=== PATIENT | female | born 1970 | race Caucasian/White ===

== ENCOUNTER 2019-09-01 01:32 | Emergency (ER) | payer OTHER ==
[~2019-09-01] VITALS: Ht 165.1 cm; Wt 79.4 kg
[2019-09-01] MEDS ORDERED: TIOT18 (02:12)
[2019-09-01] MEDS ORDERED: VOSPIRE (02:13)
[2019-09-01 02:24] LABS: BASOPHILS ABSOLUTE AUTO 0.03 K/mm3 (0.00-0.23); BASOPHILS PERCENT AUTO 1 % (0-2); EOSINOPHILS ABSOLUTE AUTO 0.18 K/mm3 (0.00-0.68); EOSINOPHILS PERCENT AUTO 3 % (0-6); Hematocrit 36.4 % (33.0-51.0); Hemoglobin 12.7 g/dL (11.5-16.0); IMMATURE GRAN ABSOLUTE AUTO 0.01 K/mm3 (0.00-0.10); IMMATURE GRAN PERCENT AUTO 0 % (0-1); LYMPHOCYTES ABSOLUTE AUTO 1.92 K/mm3 (0.84-5.20); LYMPHOCYTES PERCENT AUTO 31 % (21-46); MONOCYTES ABSOLUTE AUTO 0.49 K/mm3 (0.16-1.47); MONOCYTES PERCENT AUTO 8 % (4-13); Mean Corpuscular HGB 32.5 pg (26.0-34.0); Mean Corpuscular HGB Conc 34.9 g/dL (31.5-36.5); Mean Corpuscular Volume 93 fL (80-100); Mean Platelet Volume 10.8 fL (9.1-12.4); NEUTROPHILS ABSOLUTE AUTO 3.66 K/mm3 (1.96-9.15); NEUTROPHILS PERCENT AUTO 58 % (41-73); Platelet Count 219 K/mm3 (150-400); RDW Coefficient Variation 12.2 % (11.7-14.2); RDW Standard Deviation 41.5 fL (35.1-46.3); Red Blood Cell Count 3.91 M/mm3 (3.80-5.20); White Blood Cell Count 6.29 K/mm3 (4.00-11.30)
[2019-09-01 02:45] LABS: Alanine Aminotransfer (ALT/SGP 19 U/L (12-78); Albumin, Blood 3.2 g/dL (3.4-5.0); Albumin/Globulin Ratio 1.2 (0.8-1.8); Alk Phos 58 U/L (50-136); Anion Gap 7 mmol/L (6-16); Aspartate Aminotrans (AST/SGOT 19 U/L (12-37); Bilirubin, Total 0.4 mg/dL (0.1-1.0); Blood Urea Nitrogen 10 mg/dL (8-24); Bun/Creatinine Ratio 12.5 (12.0-20.0); CO2, Blood 26 mmol/L (21-32); Calcium, Blood 8.1 mg/dL (8.5-10.1); Chloride, Blood 92 mmol/L (98-108); Globulin, Blood 2.7 g/dL (2.2-4.0); Glomerular Filtration Rate >60 (60-); Glucose, Blood 85 mg/dL (70-99); Potassium, Blood 3.7 mmol/L (3.5-5.5); Sodium, Blood 125 mmol/L (136-145); Total Protein, Blood 5.9 g/dL (6.4-8.2); Troponin I <0.015 ng/mL (0.000-0.040)
== END 2019-09-01 05:12 | disposition home or self-care (01) ==
LOC: ER 01:32
PROVIDERS: Emergency Medicine
DX: F41.9 Anxiety disorder, unspecified (principal); R07.9 Chest pain, unspecified; E87.1 Hypo-osmolality and hyponatremia; J44.9 Chronic obstructive pulmonary disease, unspecified; F17.200 Nicotine dependence, unspecified, uncomplicated; Z79.899 Other long term (current) drug therapy
CPT/HCPCS: 71046; 80053; 84484; 85025; 93005; 93010; 96374; 99285-25; J1885

== ENCOUNTER 2019-09-06 13:52 | Emergency (ER) | payer OTHER ==
[~2019-09-06] VITALS: Ht 162.6 cm; Wt 77.1 kg
[~2019-09-06 13:52] MED LIST: TIOT18; VOSPIRE
[2019-09-06 15:00] LABS: BASOPHILS ABSOLUTE AUTO 0.03 K/mm3 (0.00-0.23); BASOPHILS PERCENT AUTO 0 % (0-2); EOSINOPHILS ABSOLUTE AUTO 0.08 K/mm3 (0.00-0.68); EOSINOPHILS PERCENT AUTO 1 % (0-6); Hematocrit 38.7 % (33.0-51.0); Hemoglobin 13.5 g/dL (11.5-16.0); IMMATURE GRAN ABSOLUTE AUTO 0.02 K/mm3 (0.00-0.10); IMMATURE GRAN PERCENT AUTO 0 % (0-1); LYMPHOCYTES ABSOLUTE AUTO 2.29 K/mm3 (0.84-5.20); LYMPHOCYTES PERCENT AUTO 29 % (21-46); MONOCYTES ABSOLUTE AUTO 0.73 K/mm3 (0.16-1.47); MONOCYTES PERCENT AUTO 9 % (4-13); Mean Corpuscular HGB 32.1 pg (26.0-34.0); Mean Corpuscular HGB Conc 34.9 g/dL (31.5-36.5); Mean Corpuscular Volume 92 fL (80-100); Mean Platelet Volume 11.7 fL (9.1-12.4); NEUTROPHILS ABSOLUTE AUTO 4.69 K/mm3 (1.96-9.15); NEUTROPHILS PERCENT AUTO 60 % (41-73); Platelet Count 236 K/mm3 (150-400); RDW Coefficient Variation 12.1 % (11.7-14.2); RDW Standard Deviation 40.7 fL (35.1-46.3); Red Blood Cell Count 4.21 M/mm3 (3.80-5.20); White Blood Cell Count 7.84 K/mm3 (4.00-11.30)
[2019-09-06 15:29] LABS: Alanine Aminotransfer (ALT/SGP 33 U/L (12-78); Albumin/Globulin Ratio 1.3 (0.8-1.8); Alk Phos 64 U/L (50-136); Anion Gap 8 mmol/L (6-16); Aspartate Aminotrans (AST/SGOT 31 U/L (12-37); Bilirubin, Total 0.4 mg/dL (0.1-1.0); Blood Urea Nitrogen 7 mg/dL (8-24); Bun/Creatinine Ratio 8.9 (12.0-20.0); CO2, Blood 22 mmol/L (21-32); Calcium, Blood 9.2 mg/dL (8.5-10.1); Chloride, Blood 103 mmol/L (98-108); Creatinine, Blood 0.78 mg/dL (0.40-1.00); Glomerular Filtration Rate >60 (60-); Glucose, Blood 85 mg/dL (70-99); Potassium, Blood 3.7 mmol/L (3.5-5.5); Sodium, Blood 133 mmol/L (136-145); Troponin I <0.015 ng/mL (0.000-0.040)
== END 2019-09-06 16:06 | disposition home or self-care (01) ==
LOC: ER 13:52
PROVIDERS: Emergency Medicine
DX: R07.89 Other chest pain (principal); F10.239 Alcohol dependence with withdrawal, unspecified; Z79.899 Other long term (current) drug therapy; J44.9 Chronic obstructive pulmonary disease, unspecified; F43.10 Post-traumatic stress disorder, unspecified; Z87.891 Personal history of nicotine dependence
CPT/HCPCS: 36415; 71045; 80053; 84484; 85025; 93005; 93010; 99284-25

== ENCOUNTER 2019-09-07 17:44 | Emergency (ER) | payer OTHER ==
[~2019-09-07] VITALS: Ht 162.6 cm; Wt 77.1 kg
[2019-09-07 18:21] LABS: BASOPHILS ABSOLUTE AUTO 0.04 K/mm3 (0.00-0.23); BASOPHILS PERCENT AUTO 1 % (0-2); EOSINOPHILS ABSOLUTE AUTO 0.16 K/mm3 (0.00-0.68); EOSINOPHILS PERCENT AUTO 3 % (0-6); Hematocrit 36.9 % (33.0-51.0); IMMATURE GRAN ABSOLUTE AUTO 0.01 K/mm3 (0.00-0.10); IMMATURE GRAN PERCENT AUTO 0 % (0-1); LYMPHOCYTES ABSOLUTE AUTO 2.38 K/mm3 (0.84-5.20); LYMPHOCYTES PERCENT AUTO 41 % (21-46); MONOCYTES PERCENT AUTO 10 % (4-13); Mean Corpuscular HGB 32.7 pg (26.0-34.0); Mean Corpuscular HGB Conc 35.2 g/dL (31.5-36.5); Mean Corpuscular Volume 93 fL (80-100); Mean Platelet Volume 11.2 fL (9.1-12.4); NEUTROPHILS PERCENT AUTO 45 % (41-73); Platelet Count 213 K/mm3 (150-400); RDW Coefficient Variation 11.8 % (11.7-14.2); RDW Standard Deviation 41.3 fL (35.1-46.3); Red Blood Cell Count 3.97 M/mm3 (3.80-5.20); White Blood Cell Count 5.79 K/mm3 (4.00-11.30)
[2019-09-07 18:44] LABS: Troponin I <0.015 ng/mL (0.000-0.040)
[2019-09-07 18:52] LABS: Alanine Aminotransfer (ALT/SGP 31 U/L (12-78); Albumin, Blood 3.8 g/dL (3.4-5.0); Albumin/Globulin Ratio 1.5 (0.8-1.8); Alk Phos 59 U/L (50-136); Anion Gap 8 mmol/L (6-16); Aspartate Aminotrans (AST/SGOT 19 U/L (12-37); Bilirubin, Total 0.5 mg/dL (0.1-1.0); Blood Urea Nitrogen 7 mg/dL (8-24); Bun/Creatinine Ratio 8.8 (12.0-20.0); CO2, Blood 20 mmol/L (21-32); Calcium, Blood 8.7 mg/dL (8.5-10.1); Chloride, Blood 97 mmol/L (98-108); Creatinine, Blood 0.79 mg/dL (0.40-1.00); Globulin, Blood 2.6 g/dL (2.2-4.0); Glomerular Filtration Rate >60 (60-); Glucose, Blood 85 mg/dL (70-99); Potassium, Blood 3.6 mmol/L (3.5-5.5); Sodium, Blood 125 mmol/L (136-145); Total Protein, Blood 6.4 g/dL (6.4-8.2)
== END 2019-09-07 21:07 | disposition home or self-care (01) ==
LOC: ER 17:44
PROVIDERS: Physician Assistant
DX: F41.9 Anxiety disorder, unspecified (principal); R07.89 Other chest pain; F10.239 Alcohol dependence with withdrawal, unspecified; F11.23 Opioid dependence with withdrawal; J44.9 Chronic obstructive pulmonary disease, unspecified; E87.1 Hypo-osmolality and hyponatremia; Z87.891 Personal history of nicotine dependence; Z79.899 Other long term (current) drug therapy
CPT/HCPCS: 71046; 80053; 84484; 85025; 93005; 93010; 99285-25

== ENCOUNTER 2020-02-23 13:18 | Emergency (ER) | payer OTHER ==
[~2020-02-23] VITALS: Ht 162.6 cm; Wt 69.4 kg
[~2020-02-23 13:18] MED LIST changes: +ACET325 PO; +ALBU90OI INH; +BREO ELLIPTA 11 EACH INH; +CLON.1 PO; +IBU800 M1 PO; +Nicoderm Cq1 EAC1 TOP; +Prempro 0.3 MG/1 TAB PO; +SPIRIVA RESPIMAT4 GM INH; +THERA1 EACH PO
== END 2020-02-23 14:12 | disposition home or self-care (01) ==
LOC: ER 13:18
DX: R07.89 Other chest pain (principal); I10 Essential (primary) hypertension; J44.9 Chronic obstructive pulmonary disease, unspecified; F43.10 Post-traumatic stress disorder, unspecified; Z79.899 Other long term (current) drug therapy; Z87.891 Personal history of nicotine dependence
CPT/HCPCS: 36415; 93005; 93010; 99283-25

== ENCOUNTER 2020-11-08 05:59 | Inpatient (IN) | payer OTHER ==
[~2020-11-08] VITALS: Ht 165.1 cm; Wt 81.7 kg
[2020-11-08 06:29] LABS: BASOPHILS ABSOLUTE AUTO 0.04 K/mm3 (0.00-0.23); BASOPHILS PERCENT AUTO 0 % (0-2); EOSINOPHILS ABSOLUTE AUTO 0.65 K/mm3 (0.00-0.68); EOSINOPHILS PERCENT AUTO 5 % (0-6); Hematocrit 20.1 % (33.0-51.0); IMMATURE GRAN ABSOLUTE AUTO 0.16 K/mm3 (0.00-0.10); IMMATURE GRAN PERCENT AUTO 1 % (0-1); LYMPHOCYTES ABSOLUTE AUTO 1.42 K/mm3 (0.84-5.20); LYMPHOCYTES PERCENT AUTO 10 % (21-46); MONOCYTES ABSOLUTE AUTO 1.03 K/mm3 (0.16-1.47); MONOCYTES PERCENT AUTO 7 % (4-13); Mean Corpuscular HGB 31.8 pg (26.0-34.0); Mean Corpuscular HGB Conc 34.8 g/dL (31.5-36.5); Mean Corpuscular Volume 91 fL (80-100); Mean Platelet Volume 9.5 fL (9.1-12.4); NEUTROPHILS ABSOLUTE AUTO 10.56 K/mm3 (1.96-9.15); NEUTROPHILS PERCENT AUTO 76 % (41-73); Platelet Count 309 K/mm3 (150-400); RDW Coefficient Variation 13.5 % (11.7-14.2); RDW Standard Deviation 44.8 fL (35.1-46.3); White Blood Cell Count 13.86 K/mm3 (4.00-11.30)
[2020-11-08 06:46] LABS: Alanine Aminotransfer (ALT/SGP 15 U/L (12-78); Albumin, Blood 2.4 g/dL (3.4-5.0); Albumin/Globulin Ratio 0.9 (0.8-1.8); Alk Phos 50 U/L (50-136); Anion Gap 7 mmol/L (6-16); Aspartate Aminotrans (AST/SGOT 12 U/L (12-37); Bilirubin, Total 0.2 mg/dL (0.1-1.0); Blood Urea Nitrogen 22 mg/dL (8-24); Bun/Creatinine Ratio 29.7 (12.0-20.0); CO2, Blood 22 mmol/L (21-32); Calcium, Blood 8.3 mg/dL (8.5-10.1); Chloride, Blood 108 mmol/L (98-108); Creatinine, Blood 0.74 mg/dL (0.40-1.00); Globulin, Blood 2.6 g/dL (2.2-4.0); Glomerular Filtration Rate >60 (60-); Glucose, Blood 98 mg/dL (70-99); Potassium, Blood 3.2 mmol/L (3.5-5.5); Sodium, Blood 137 mmol/L (136-145)
[2020-11-08 07:26] LABS: Source, Urine Clean Catch
[2020-11-08 07:39] LABS: Appearance, Urine Clear (Clear); Bilirubin, Urine Neg (Neg); Blood, Urine Neg (Neg); Color, Urine Yellow (P-Yellow); Glucose Qualitative, Urine Neg (Neg); Ketones, Urine Neg (Neg); Leukocyte Esterase, Urine 2+ (Neg); Nitrite, Urine Neg (Neg); Protein, Urine Neg (Neg); Urobilinogen, Urine NORM (Normal); pH, Urine 6.5 (5.0-8.0)
[2020-11-08 07:58] LABS: Bacteria Few /hpf; Red Blood Cells, Urine 0-2 /hpf (0-2); Squamous Epithelial Cells Few /hpf (Few)
[2020-11-08 09:22] LABS: Influenza A, PCR Negative (NEGATIVE); Influenza B, PCR Negative (NEGATIVE); Resp Syncytial Virus, PCR Negative (NEGATIVE); SARS-Cov-2 (COVID-19) PCR, MMC Negative (NEGATIVE)
--- NOTE | 2020-11-08 11:59 | NUR ---
PATIENT ARRIVED ON UNIT FROM ER TODAY 11/08/20 AT AROUND 1130. SHE CAME ALERT AND ORIENTED X4. VITALS ARE WNL AND IS ON RA. PAIN IS CONTROLLED WITH IV NARCOTICS. PATIENT CAME UP WITH BLOOD INFUSION ALREADY BEGAN. THE BLOOD FINISHED AROUND 1140. PATIENT HAD NO SOB, LUNGS WERE CLEAR, AND VS WERE WNL. PATIENT WHEN STANDING AT THE SIDE OF THE BED REPORTED "FEELING LIGHT HEADED". SHE WILL NEED TO BE A SBA IF NEEDING THE RESTROOM. SHE DOES COME ACROSS WITH ANXIETY. HOPING TO HAVE THE FAMILY MEMBER COME SHORTLY TO RELIEVE SOME OF THAT ANXIETY. PATIENT HAS CALL LIGHT WITHIN REACH.
--- NOTE | 2020-11-08 12:35 | NUR ---
PATIENT STARTED TO RECIEVE BLOOD IN THE ER AT 0845 ON 11/08/2020. BLOOD WAS COMPLETED ON SURGICAL UNIT AT 1140. BLOOD WAS VARIFIED IN ER. PT HAS WNL VITAL SIGNS, LUNGS ARE CLEAR, AND PT DENIES SOB. PAPER FROM ER WITH VITALS, START TIME, AND ER NURSE SIGNITURES ARE IN THE PATIENT'S PHYSICAL FOLDER.
--- NOTE | 2020-11-08 13:23 | NUR ---
Patient is sitting up in bed and alert. Patient tells me that she has been in the area 10 months and has no family in the area and because of the pandemic has been isolated further. Patient tells me that she is a Oriental Orthodox and she wants prayer. Patient tells me about the churches she has tried in the area and that she was only able to try a couple before churches were shut down. She explains about the events that led to her hospitalization and the symptoms she is feeling currently. I provide therapeutic listening and prayer and then patient is transported for a proceedure. I will continue to remain available to patient and family.
--- NOTE | 2020-11-08 13:40 | NUR ---
History, Chart, Medications and Allergies reviewed before start of procedure. Patient confirms NPO status and agrees with scheduled surgery. Pre-Op teaching done. Pt verbalizes understanding. pt c/o feeling like she needs a breathing treatment. reports being on several different medications for her copd. pt appears in no acute distress. ls in upper left lobe noted to have exp wheezes, bases diminished but clear. breathing treatment provided after v.o. received from dr. Spencer.
--- NOTE | 2020-11-08 13:41 | NUR ---
11/08/20 1342 Kiki Estes History, Chart, Medications and Allergies reviewed before start of procedure.Patient confirms NPO status and agrees with scheduled surgery.3-LEAD EKG REVIEWED WITH PHYSICIAN PRIOR TO START OF PROCEDURE.MONITOR INTACT WITH CONTINUOUS PULSE OXIMETRY AND INTERMITTENT BP.O2 VIA N/C INTACT THROUGHOUT SEDATION/PROCEDURE. PATIENT DETERMINED TO BE ASA APPROPRIATE FOR PROPOFOL SEDATION PRIOR TO START OF PROCEDURE BY DR. URIBE
--- NOTE | 2020-11-08 14:27 | NUR ---
PATIENT CAME BACK FROM HAVING A SCOPE DONE WITH DR. URIBE. SHE IS AWAKE AND ALERT AND ORIENTED X4. VS ARE WNL AND IS ON RA. PAIN IS CONTROLLED AT THIS TIME. SHE IS ABLE TO WIGGLE TOES AND WAS ABLE TO TRANSFER FROM THE DAY SURGERY BED TO THE UNIT BED WITHOUT HAVING SOB OR LIGHTHEADEDNESS. PATIENT HAS HER CALL LIGHT WITHIN REACH.
--- NOTE | 2020-11-08 14:30 | NUR ---
DR. HALL NOTIFIED PT BACK TO ROOM FROM PROCEDURE. CALL PLACED TO DR. HALL AFTER PT ARRIVED BACK TO THE ROOM FROM EGD AT [facility] TO [facility] 1427. DR. HALL WAS NOTIFIED OF PT'S ARRIVAL BACK TO THE ROOM SO HE COULD ROUND. HE WAS NOTIFIED THAT PT HAD QUESTIONS REGARDING HER PLAN OF CARE AND HOME MEDICATIONS. H&H ORDER REQUESTED FROM DR. HALL TO EVALUATE NEED FOR SENCOND UNIT OF PRBC. DR. HALL GAVE ORDER TO HOLD SECOND UNIT OF PRBC IF HGB >7.0.
--- NOTE | 2020-11-08 15:30 | NUR ---
DR. CARRENO ROUNDED ON PT, TO UPDATE HER REGARDING THE EGD PROCEDURE, AND RESULTS OF PROCEDURE. DR. CARRENO REQUESTED THAT DR. HALL BE NOTIFIED OF PT'S REQUEST FOR PAIN MEDICATION AND REQUEST TO TALK WITH HIM REGARDING HER CONDITION. DR. CARRENO NOTIFIED THAT DR. HALL HAD ALREADY BEEN CONTACTED PER THE PT'S REQUEST AND HER QUESTIONS HAD BEEN ANSWERED TO THE BEST OF NURSING ABILITY. PT CONTINUED TO EXPRESS CONFUSION REGARDING CARE AND STAFF CONTINUED TO REINFORCE EDUCATION AND TRY TO COMMUNICATE WITH PT.
[2020-11-08 15:54] LABS: Hematocrit 23.3 % (33.0-51.0); Hemoglobin 8.1 g/dL (11.5-16.0)
--- NOTE | 2020-11-08 16:30 | NUR ---
COMMUNICATION CHALLENGES PT EXPRESSED FRUSTRATION ABOUT HER CARE. SHE EXPRESSED THAT SHE DID NOT FEEL SHE HAD BEEN COMMUNICATED WITH REGARDING HER CONDITION OR PLAN OF CARE. PT WAS EDUCATED T/O THE DAY. SHE OFTEN TALKED OVER NURSING STAFF WHILE THEY ATTEMPTED TO ANSWER QUESTIONS. PT APPEARED ANXIOUS AND WAS OFFERED SUPPORT FROM PT ADVOCATE. PT ADVOCATE CAME TO SEE THE PT, SHE DECLINED NEEDING TO SPEAK WITH THE PT ADVOCATE. PT ADVOCATE DID NOTIFY DR. HALL THAT PT WAS CONTINUING TO REQUEST THAT HE ROUND SO THAT HER QUESTIONS COULD BE ANSWERED. PT WAS EDUCATED THAT THE DOCTOR WOULD ROUND WHEN ABLE AND HE HAD BEEN NOTIFIED OF HER REQUESTS. ATTEMPTED TO COMFORT PT AND ANSWER HER QUESTIONS. PT APPEARED TO RESPOND BEST WHEN STAFF SPOKE SLOWLY AND HELPED HER TO WRITE DOCTOR NAMES AND HER QUESTIONS DOWN.
--- NOTE | 2020-11-08 17:00 | NUR ---
CARE ASSUMED CARE WAS ASSUMED OF THE PT AT APPROXIMATELY 1645. REPORT OBTAINED FROM DESMOND LING. PT NOTIFIED OF CHANGE OF CARE.
--- NOTE | 2020-11-08 17:50 | NUR ---
DR. HALL ROUNDED 1743. DR. HALL ROUNDED ON PT AT APPROXIMATELY 1725. HE WAS NOTIFIED OF HER REQUESTS FOR INCREASED PAIN MEDICATION, INHALER/NEBULIZER, HOME MEDICATIONS AND NICOTINE PATCH. ORDERS WERE PLACED BY DR. HALL.
--- NOTE | 2020-11-08 18:05 | NUR ---
SHIFT SUMMARY: FLAKITA LING ASSUMED CARE AROUND 1500 ON 11/08/2020. SINCE PATIENT HAD CAME BACK FROM HER PROCEDURE SHE REPORTED WANTING TO TALK TO "THE GI DOCTOR THAT DID MY PROCEDURE". I TRIED TO GET AHOLD OF DR. URIBE TWO OR THREE TIMES BUT HE WAS BUSY OR I COULDN'T GET AHOLD OF HIM. I THEN TOLD THE PATIENT THAT I HAD TRIED TO CONTACT THE DOCTOR BUT I COULDN'T GET AHOLD OF HIM. PATIENT STARTED INCREASING IN ANGER AND NOT COOPERATIVE. I PLACED TWO HATS IN THE TOLIET TO CAPTURE ANY OUTPUT POST PROCEDURE. I COME BACK INTO THE ROOM AFTER SHE USED THE BATHROOM AND SHE PLACED THE TWO HATS ON TOP OF THE GARBAGE STATING THAT SHE "DIDN'T KNOW THEY WERE SUPPOSED TO BE THERE". EVEN THOUGH I HER NURSE EDUCATED HER ON WHY THE HATS WERE PLACED IN THE TOLIET. THEN THE PATIENT PROCEEDED TO BE UNCOMPLIANT. SHE UNHOOKED HER CORD THAT HAD AN PROTONIX RUNNING AND WAS STANDING OUT IN THE THACKER WAY STATING "I WANT THE DOCTOR IN". RIGHT SHE DID THAT I HAD A [facility] CALL SAYING THAT HER GI DOCTOR WAS ON THE LINE. I TOLD HER HOW THE DOCTOR WAS CALLING NOW AND THAT SHE NEEDED TO BE SITTING BACK IN BED WHILE I GET THE DOCTOR TO COME DOWN TO HER. MY CHARGE NURSE WAS ENVOLVED THIS WHOLE AFTERNOON WELL TRYING TO ANSWER HER QUESTIONS. EVERY TIME I TRIED TO EXPLAIN TO THE PATIENT AND ANSWER HER QUESTIONS SHE WOULD CUT ME OFF AND BECOME MORE ANGRY.
--- NOTE | 2020-11-08 19:20 | NUR ---
REPORT REPORT GIVEN TO QAMAR RN AT [facility] 192. SHE WAS NOTIFIED THAT SHE WOULD BE TRANSFERRING TO THE MEDICAL FOR SINCE SHE IS A MEDICAL STATUS PT. REPORT WAS GIVEN AT BEDSIDE TO DEIDRA LING AND PT'S QUESTIONS WERE ANSWERED.
--- NOTE | 2020-11-08 19:20 | NUR ---
PAIN MEDICATION PT WAS PROVIDED WITH PAIN MEDICATION AT APPROXIMATELY 1830. PT WAS EDUCATED THAT SHE WOULD BE ABLE TO HAVE PAIN MEDICATION EVERY 2 HOURS NEEDED. AT TIME OF BEDSIDE REPORT, APPROXIMATELY 1920, PT WAS REQUESTING PAIN MEDICATION FOR PAIN SHE RATED AT 8/10. PT WAS EDUCATED THAT THE DOCTOR HAD ADDRESSED HER PAIN MEDICATION CONCERNS AND INCREASED FREQUENCY. SHE WAS EDUCATED THAT THE NOC RN WOULD NEED TO ASSESS HER PRIOR TO CONTACTING THE DOCTOR FOR CHANGE IN PAIN MEDICATION. PT APPEARED TO BE RESTING COMFORTABLY IN BED WITH OCCASIONAL GRIMACING AND REPOSITIONING. SHE APPEARED TO DISTRACT EASILY FROM PAIN WITH CONVERSATIION. PT APPEARS TO BE ANXIOUS ABOUT CARE.
--- NOTE | 2020-11-08 20:29 | NUR ---
PT REPORTED TO RN AT 1725 THAT SHE WAS HAVING TROUBLE BREATHING. RR AND EFFORT EVEN AND UNLABORED. PT DID NOT APPEAR TO HAVE ANY DIFFICULTY SLEEPING OR MOVING AROUND, NO INCREASED SOB WITH MOVEMENT. RESPIRATORY CARE ARRIVED TO ASSESS PT AT 1747; PT DECLINED RESPIRATORY ISSUES. PT REPORTED BEING FRUSTRATED THAT RESPIRATORY CARE CAME TO TREAT HER BOWEL CRAMPS; PT WAS EDUCATED THAT THEY CAME TO TREAT THE RESPIRATORY ISSUES SHE REPORTED TO STAFF. PT BECAME LESS ANXIOUS AFTER EDUCATION.
--- NOTE | 2020-11-09 04:44 | NUR ---
@2100- PT. TRANSFERRED FROM SURGICAL. A&O, INDEP IN ROOM, SISTER AT BEDSIDE. PT. ORIENTED TO ROOM AND NURSING STAFF. NO COMPLAINTS AT THIS TIME. CALL LIGHT WITHIN REACH AND SIDE RAILS UPX2.
--- NOTE | 2020-11-09 04:46 | NUR ---
SHIFT SUMMARY- PT. ANXIOUS T/O THE NIGHT AND C/O PAIN 08/01 THIS SHIFT, MEDICATED Q2HRS T/O THE NIGHT PER PT. REQUEST WITH MINIMAL EFFECT. ALSO C/O NA, ZOFRAN GIVEN PER EMAR WITH GOOD RELIEF. PT. AWAKE DURING THE NIGHT CONCERNED WITH PLAN OF CARE, HEATING PAD NOT HOT ENOUGH, AND THE PROPER DOSE OF NEB TX'S ORDERED. REQUESTING NEB TX'S TO BE GIVEN MORE OFTEN STATED SHE TAKES THEM ALL DAY AT HOME FOR HER COPD. DISCUSSED W/PT. APPROPRIATE MEDICATION DOSING AND FREQUENCY PER PHYSICIAN ORDERS. ALSO EXPLAINED HEATING PAD REACHED MAX TEMP DUE TO SAFETY, VERBALIZED UNDERSTANDING. PT. INTERRUPTS CONSISTANTLY AND GETS UPSET EASILY. OFFERED AND GIVEN SEVERAL SNACKS T/O THE NIGHT, ON CL LIQUID DIET. TOLERATING WELL. CALL LIGHT WITHIN REACH AND SIDE RAILS UPX2. WILL CONT TO MONITOR.
[2020-11-09 04:47] LABS: BASOPHILS ABSOLUTE AUTO 0.06 K/mm3 (0.00-0.23); BASOPHILS PERCENT AUTO 0 % (0-2); EOSINOPHILS ABSOLUTE AUTO 0.68 K/mm3 (0.00-0.68); EOSINOPHILS PERCENT AUTO 5 % (0-6); Hematocrit 23.4 % (33.0-51.0); Hemoglobin 7.8 g/dL (11.5-16.0); IMMATURE GRAN ABSOLUTE AUTO 0.13 K/mm3 (0.00-0.10); IMMATURE GRAN PERCENT AUTO 1 % (0-1); LYMPHOCYTES PERCENT AUTO 12 % (21-46); MONOCYTES PERCENT AUTO 6 % (4-13); Mean Corpuscular HGB 30.2 pg (26.0-34.0); Mean Corpuscular HGB Conc 33.3 g/dL (31.5-36.5); Mean Corpuscular Volume 91 fL (80-100); Mean Platelet Volume 9.7 fL (9.1-12.4); NEUTROPHILS ABSOLUTE AUTO 10.34 K/mm3 (1.96-9.15); NEUTROPHILS PERCENT AUTO 76 % (41-73); Platelet Count 304 K/mm3 (150-400); RDW Coefficient Variation 14.2 % (11.7-14.2); RDW Standard Deviation 46.6 fL (35.1-46.3); Red Blood Cell Count 2.58 M/mm3 (3.80-5.20); White Blood Cell Count 13.61 K/mm3 (4.00-11.30)
[2020-11-09 05:03] LABS: Anion Gap 6 mmol/L (6-16); Blood Urea Nitrogen 11 mg/dL (8-24); Bun/Creatinine Ratio 18.3 (12.0-20.0); CO2, Blood 24 mmol/L (21-32); Calcium, Blood 8.1 mg/dL (8.5-10.1); Chloride, Blood 109 mmol/L (98-108); Glomerular Filtration Rate >60 (60-); Glucose, Blood 110 mg/dL (70-99); Potassium, Blood 2.8 mmol/L (3.5-5.5); Sodium, Blood 139 mmol/L (136-145)
--- NOTE | 2020-11-09 18:43 | NUR ---
SHIFT SUMMARY- PT A/O. SHE IS RECIEVING A CLEAR LIQUID DIET AND TOLERATING WELL. SHE IS RECIEVING A PROTONIX DRIP. RECOMENDED THAT PT CALL HER SISTER WHEN THE DR IS IN THE ROOM TO ANSWER HER QUESTIONS. SHE IS REQUIRING PAIN MEDICATIONS FOR STOMACH PAIN. SHE REQUESTED THAT WE SPEAK TO HER SISTER ABOUT HER CARE ONLY IN THE PTS PRESENCE. HER PAIN MEDICATIONS WERE ADJUSTED TODAY TO FOCUS MORE ON ORAL MEDICATIONS. HER BED IS IN THE LOW POSITION AND CALL LIGHT WITHIN REACH.
--- NOTE | 2020-11-10 04:47 | NUR ---
SHIFT SUMMARY- PT. C/O PAIN DURING THE NIGHT. MEDICATED SEVERAL TIMES T/O THE SHIFT, PT. REPORTS MINIMAL EFFECT. PT. TOLERATING CL DIET, REQUESTING SOMETHNG MORE TO EAT, STATED IS VERY HUNGRY. ADVANCED TO FULL LIQUID PER MD NOTE. OFFERED PT. YOGURT, TOLERATED WELL. CONTS ON PROTONIX GTT. NO ACUTE CHANGES TO CONDITION. CALL LIGHT WITHIN REACH AND SIDE RAILS UPX2. WILL CONT TO MONITOR.
--- NOTE | 2020-11-10 08:33 | NUR ---
JOB TRAINING SPECIALIST: RECEIVED PHONE CALL FROM PATIENT STATING STAFF WERE NOT GIVING HER FOOD TO EAT NOR WERE THEY ADDRESSING HER PAIN. SHE ALSO STATED STAFF REFUSED TO GIVE HER COPIES OF ALL OF HER MEDICAL RECORDS. I INSTRUCTED PATIENT THAT HER PHYSICIAN ORDERS REVEAL SHE IS ONLY TO HAVE CLEAR LIQUDS - PT STATED "THEY HAVEN'T SO MUCH BROUGHT ME A GLASS OF WATER." I INSTRUCTED PATIENT TO DISCUSS PAIN CONTROL WITH RN AND MD FOR APPROPRIATE FOLLOW UP. I ALSO INSTRUCTED PATIENT THAT SHE WOULD NEED TO REQUEST COPIES OF HER MEDICAL RECORDS THROUGH MEDICAL RECORDS DEPARTMENT, WHICH WOULD BE OPEN Wednesday. PT HUNG UP ON THIS RN. I SPOKE WITH CHARGE NURSE LENNY WHO STATED SHE IS AWARE OF PATIENT'S CONCERNS AND HAS ADDRESSED THEM MULTIPLE TIMES WITH PATIENT.
[2020-11-10 12:52] LABS: BASOPHILS ABSOLUTE AUTO 0.04 K/mm3 (0.00-0.23); BASOPHILS PERCENT AUTO 0 % (0-2); EOSINOPHILS ABSOLUTE AUTO 0.46 K/mm3 (0.00-0.68); EOSINOPHILS PERCENT AUTO 5 % (0-6); Hematocrit 20.2 % (33.0-51.0); Hemoglobin 6.9 g/dL (11.5-16.0); IMMATURE GRAN ABSOLUTE AUTO 0.13 K/mm3 (0.00-0.10); IMMATURE GRAN PERCENT AUTO 2 % (0-1); LYMPHOCYTES ABSOLUTE AUTO 1.67 K/mm3 (0.84-5.20); LYMPHOCYTES PERCENT AUTO 19 % (21-46); MONOCYTES PERCENT AUTO 8 % (4-13); Mean Corpuscular HGB 31.2 pg (26.0-34.0); Mean Corpuscular HGB Conc 34.2 g/dL (31.5-36.5); Mean Corpuscular Volume 91 fL (80-100); Mean Platelet Volume 10.1 fL (9.1-12.4); NEUTROPHILS ABSOLUTE AUTO 5.92 K/mm3 (1.96-9.15); NEUTROPHILS PERCENT AUTO 66 % (41-73); Platelet Count 280 K/mm3 (150-400); RDW Coefficient Variation 14.2 % (11.7-14.2); RDW Standard Deviation 46.5 fL (35.1-46.3); Red Blood Cell Count 2.21 M/mm3 (3.80-5.20); White Blood Cell Count 8.92 K/mm3 (4.00-11.30)
[2020-11-10 13:02] LABS: Anion Gap 8 mmol/L (6-16); Blood Urea Nitrogen 8 mg/dL (8-24); Bun/Creatinine Ratio 13.6 (12.0-20.0); CO2, Blood 24 mmol/L (21-32); Calcium, Blood 8.1 mg/dL (8.5-10.1); Chloride, Blood 107 mmol/L (98-108); Creatinine, Blood 0.59 mg/dL (0.40-1.00); Glomerular Filtration Rate >60 (60-); Glucose, Blood 162 mg/dL (70-99); Potassium, Blood 2.8 mmol/L (3.5-5.5); Sodium, Blood 139 mmol/L (136-145)
--- NOTE | 2020-11-10 18:08 | NUR ---
SHIFT SUMMARY- PT IS A/O. HER DIET WAS ADVANCED TO FULL LIQUID SHE IS TOLERATING WELL. HER HGB WAS 6.9 AND SHE IS RECIEVING A BLOOD TRANSFUSION. SHE RECIEVED A SHOWER THIS MORNING. HER PROTONIX WAS HELD FOR THE TRANSFUSION. SHE IS RECIEVING PAIN MEDICATION PRN. HER BED IS IN THE LOW POSITION AND CALL LIGHT IS WITHIN REACH.
[2020-11-11 04:40] LABS: BASOPHILS ABSOLUTE AUTO 0.04 K/mm3 (0.00-0.23); BASOPHILS PERCENT AUTO 1 % (0-2); EOSINOPHILS ABSOLUTE AUTO 0.51 K/mm3 (0.00-0.68); EOSINOPHILS PERCENT AUTO 7 % (0-6); Hematocrit 23.5 % (33.0-51.0); IMMATURE GRAN ABSOLUTE AUTO 0.12 K/mm3 (0.00-0.10); IMMATURE GRAN PERCENT AUTO 2 % (0-1); LYMPHOCYTES ABSOLUTE AUTO 1.59 K/mm3 (0.84-5.20); LYMPHOCYTES PERCENT AUTO 21 % (21-46); MONOCYTES ABSOLUTE AUTO 0.67 K/mm3 (0.16-1.47); MONOCYTES PERCENT AUTO 9 % (4-13); Mean Corpuscular Volume 91 fL (80-100); Mean Platelet Volume 9.7 fL (9.1-12.4); NEUTROPHILS ABSOLUTE AUTO 4.83 K/mm3 (1.96-9.15); NEUTROPHILS PERCENT AUTO 62 % (41-73); Platelet Count 304 K/mm3 (150-400); RDW Coefficient Variation 14.1 % (11.7-14.2); RDW Standard Deviation 45.8 fL (35.1-46.3); Red Blood Cell Count 2.58 M/mm3 (3.80-5.20); White Blood Cell Count 7.76 K/mm3 (4.00-11.30)
[2020-11-11 05:06] LABS: Anion Gap 4 mmol/L (6-16); Blood Urea Nitrogen 6 mg/dL (8-24); Bun/Creatinine Ratio 10.3 (12.0-20.0); CO2, Blood 27 mmol/L (21-32); Calcium, Blood 8.4 mg/dL (8.5-10.1); Chloride, Blood 109 mmol/L (98-108); Creatinine, Blood 0.58 mg/dL (0.40-1.00); Glomerular Filtration Rate >60 (60-); Glucose, Blood 91 mg/dL (70-99); Potassium, Blood 3.8 mmol/L (3.5-5.5); Sodium, Blood 140 mmol/L (136-145)
--- NOTE | 2020-11-11 05:38 | NUR ---
SHIFT SUMMARY- NO ACUTE EVENTS OVERNIGHT. C/O ABD PAIN, MEDICATED SEVERAL TIMES DURING THE NIGHT WITH MINIMAL RELIEF. PT. REPORTED SOME IMPROVEMENT WITH LAST DOSE. HGB 8.0 THIS AM, PT. STATES NO BM LAST NIGHT. ANTICIPATING D/C TODAY. CALL LIGHT WITHIN REACH AND SIDE RAILS UPX2. WILL CONT TO MONITOR.
--- NOTE | 2020-11-11 18:47 | NUR ---
NO ACUTE CHANGES NOTED THIS SHIFT, PT IS TOLERATING HER PO NORCO. PLAN IS FOR HER TO BE DISCHARGED TOMORROW IF LABS REMAIN STABLE. WILL CONTINUE TO MONITOR AND REPORT TO ONCOMING RN
[2020-11-11] MEDS ORDERED: Catapres0.2 MG PO (20:07)
--- NOTE | 2020-11-11 23:04 | NUR ---
2144 PT REPORTS HAVING EPISODE OF VOMITING. PT STATES SHE VOMITED PAIN MED UP. THIS RN GAVE HER A NEW TAB.
--- NOTE | 2020-11-12 04:02 | NUR ---
SUMMARY PT HAD REPORTED PAIN AND A EPISODE OF N/V. PT TX PER EMAR. PT VOICED CONCERNS OF DOSING OF CLONIDINE AND RESP. MEDS. WILL PASS ON TO DAY RN. PT HAS NOT SLEPT MUCH. PT CURRENTLY AWAKE. CALL LIGHT IN REACH.
[2020-11-12 04:48] LABS: Hematocrit 22.9 % (33.0-51.0); Hemoglobin 7.7 g/dL (11.5-16.0)
[2020-11-12 14:17] LABS: Hemoglobin 8.1 g/dL (11.5-16.0)
[2020-11-12] MEDS ORDERED: Norco 5-325 Ta1 EACH PO (14:54)
[2020-11-12] MEDS ORDERED: PANT40 PO (14:54)
--- NOTE | 2020-11-12 16:51 | NUR ---
DISCHARGE DISCHARGE INSTRUCTIONS, MEDICATION LIST AND FOLLOW UP APPOINTMENT REVIEWED WITH PT. QUESTIONS/CONCERNS ANSWERED. PT CONCERNED WITH RECEIVING MEDICATIONS ONCE SHE WAS HOME. PER [facility] HER MEDS WILL BE DELIVERED AFTER 4PM. PT VERBALLY INDICATED UNDERSTANDING OF ALL INSTRUCTIONS RECEIVED. PT ESCORTED OUT VIA W/C BY SHAMIKA
[2020-11-22] MEDS ORDERED: CIPR500 PO (16:16)
[2020-11-22] MEDS ORDERED: METR500 PO (16:16)
[2020-11-22] MEDS ORDERED: HYDR1TAB94 PO (16:16)
== END 2020-11-12 15:55 | disposition home or self-care (01) | DRG 368 ==
LOC: ER 05:59 → MEDS 09:47 → SURS 09:47 → MEDS 20:49
PROVIDERS: Emergency Medicine; Physician Assistant; Student in an Organized Health Care Education/Training Program; ADMIT Internal Medicine
PROC: 30233N1 Transfusion of Nonautologous Red Blood Cells into Peripheral Vein, Percutaneous Approach (ICD-10-PCS; principal; 2020-11-08 14:15)
DX: K21.01 Gastro-esophageal reflux disease with esophagitis, with bleeding (principal); K25.4 Chronic or unspecified gastric ulcer with hemorrhage; D62 Acute posthemorrhagic anemia; I10 Essential (primary) hypertension; J44.9 Chronic obstructive pulmonary disease, unspecified; F10.21 Alcohol dependence, in remission; K73.9 Chronic hepatitis, unspecified; F43.10 Post-traumatic stress disorder, unspecified; F17.201 Nicotine dependence, unspecified, in remission; E87.6 Hypokalemia; Z20.828 Contact with and (suspected) exposure to other viral communicable diseases; T39.395A Adverse effect of other nonsteroidal anti-inflammatory drugs [NSAID], initial encounter; Y92.9 Unspecified place or not applicable
CPT/HCPCS: 0241U; 36415; 36430; 74177; 80048; 80053; 81001; 81025; 82272; 83690; 83735; 85014; 85018; 85025; 86850; 86900; 86901; 86923; 87086; 93005; 93010; 94640; 94760; 96361; 96365-59; 96375; 99285-25; A9270; A9270-GY; C9113; J2250; J2270; J2405; J2704; J3010; J7030; J7120; P9016; Q9967

== ENCOUNTER 2020-12-13 14:35 | Emergency (ER) | payer OTHER ==
[~2020-12-13] VITALS: Ht 162.6 cm; Wt 83.9 kg
[~2020-12-13 14:35] MED LIST changes: +CIPR500 PO; +Catapres0.2 MG PO; +HYDR1TAB94 PO; +METR500 PO; +Norco 5-325 Ta1 EACH PO; +PANT40 PO
[2020-12-13 15:04] LABS: BASOPHILS ABSOLUTE AUTO 0.08 K/mm3 (0.00-0.23); BASOPHILS PERCENT AUTO 1 % (0-2); EOSINOPHILS ABSOLUTE AUTO 0.51 K/mm3 (0.00-0.68); EOSINOPHILS PERCENT AUTO 5 % (0-6); Hematocrit 35.6 % (33.0-51.0); Hemoglobin 11.8 g/dL (11.5-16.0); IMMATURE GRAN ABSOLUTE AUTO 0.02 K/mm3 (0.00-0.10); IMMATURE GRAN PERCENT AUTO 0 % (0-1); LYMPHOCYTES ABSOLUTE AUTO 2.19 K/mm3 (0.84-5.20); LYMPHOCYTES PERCENT AUTO 23 % (21-46); MONOCYTES ABSOLUTE AUTO 0.82 K/mm3 (0.16-1.47); MONOCYTES PERCENT AUTO 8 % (4-13); Mean Corpuscular HGB 30.7 pg (26.0-34.0); Mean Corpuscular HGB Conc 33.1 g/dL (31.5-36.5); Mean Corpuscular Volume 93 fL (80-100); Mean Platelet Volume 10.2 fL (9.1-12.4); NEUTROPHILS ABSOLUTE AUTO 6.11 K/mm3 (1.96-9.15); NEUTROPHILS PERCENT AUTO 63 % (41-73); Platelet Count 274 K/mm3 (150-400); RDW Coefficient Variation 13.6 % (11.7-14.2); RDW Standard Deviation 46.2 fL (35.1-46.3); Red Blood Cell Count 3.84 M/mm3 (3.80-5.20); White Blood Cell Count 9.73 K/mm3 (4.00-11.30)
[2020-12-13 15:36] LABS: Alanine Aminotransfer (ALT/SGP 20 U/L (12-78); Albumin, Blood 3.8 g/dL (3.4-5.0); Albumin/Globulin Ratio 1.1 (0.8-1.8); Alk Phos 99 U/L (50-136); Anion Gap 6 mmol/L (6-16); Aspartate Aminotrans (AST/SGOT 32 U/L (12-37); Bilirubin, Total 0.4 mg/dL (0.1-1.0); Blood Urea Nitrogen 24 mg/dL (8-24); Bun/Creatinine Ratio 37.3 (12.0-20.0); CO2, Blood 22 mmol/L (21-32); Chloride, Blood 107 mmol/L (98-108); Creatinine, Blood 0.64 mg/dL (0.40-1.00); Globulin, Blood 3.6 g/dL (2.2-4.0); Glomerular Filtration Rate >60 (60-); Glucose, Blood 91 mg/dL (70-99); Potassium, Blood 4.6 mmol/L (3.5-5.5); Sodium, Blood 135 mmol/L (136-145); Total Protein, Blood 7.4 g/dL (6.4-8.2)
[2020-12-13] MEDS ORDERED: Protonix40 MG PO (17:22)
== END 2020-12-13 17:48 | disposition home or self-care (01) ==
LOC: ER 14:35
PROVIDERS: Physician Assistant
DX: R10.10 Upper abdominal pain, unspecified (principal); I10 Essential (primary) hypertension; J44.9 Chronic obstructive pulmonary disease, unspecified; Z87.891 Personal history of nicotine dependence; Z79.899 Other long term (current) drug therapy
CPT/HCPCS: 36415; 80053; 85025; 99284; A9270

== ENCOUNTER 2021-02-09 12:50 | Emergency (ER) | payer OTHER ==
[~2021-02-09] VITALS: Ht 162.6 cm; Wt 83.9 kg
[~2021-02-09 12:50] MED LIST changes: +Protonix40 MG PO
[2021-02-09] MEDS ORDERED: AZIT250 PO (13:41)
== END 2021-02-09 13:55 | disposition home or self-care (01) ==
LOC: ER 12:50
DX: J44.1 Chronic obstructive pulmonary disease with (acute) exacerbation (principal); I10 Essential (primary) hypertension; F17.290 Nicotine dependence, other tobacco product, uncomplicated; Z79.899 Other long term (current) drug therapy
CPT/HCPCS: 99282